=== PATIENT | female | born 1995 | race Caucasian/White ===

== ENCOUNTER 2019-10-24 15:53 | Emergency (ER) | payer BC ==
--- NOTE | 2019-10-24 16:28 | UC ---
Complaint Female HPI - HPI Summary HPI Summary: 24 yo female presents with pelvic pain. She tells me that she has always had abnormal menstrual cycles. Over the last few years she has been keeping a log and has noticed that she has a 5 day cycle about every 80-85 days that starts as a heavy bleeding and then will slow and stop. Throughout that time she will have significant b/l pelvic cramping and nausea. She tells me that she was practicing abstinence and just got in early september and started having unprotected intercourse with her around mid september. She had a few days of spotting around this time, but no pain. Today she tells me that over the last 2 days she has had brown vaginal discharge and RIGHT pelvic pain that is sharp. She is not due for her period. She took a test that was negative. She does not take any control. She denies abdominal pain, n/v/d/ c, dysuria, fever, or recent illness. - History Of Current Complaint Chief Complaint: UCAbdominalPain Stated Complaint: ABD PAIN, PERSONAL ISSUE Time Seen by Provider: 10/24/19 16:28 Hx Obtained From: Patient Hx Last Menstrual Period: early September Onset/Duration: Sudden Onset Timing: Constant Severity Initially: Moderate Severity Currently: Moderate Pain Intensity: 5 Pain Scale Used: 0-10 Numeric - Allergies/Home Medications Allergies/Adverse Reactions: Allergies Allergy/AdvReac Type Severity Reaction Status Date / Time No Known Allergies Allergy Verified 10/24/19 16:24 Home Medications: Home Medications NK [No Home Medications Reported] 10/24/19 [History Confirmed 10/24/19] PMH/Surg Hx/FS Hx/Imm Hx - Additional Past Medical History Additional PMH: None - Surgical History Surgical History: None - Family History Known Family History: Positive: None - Social History Occupation: Student Lives: With Family Alcohol Use: None Substance Use Type: None Smoking Status (MU): Never Smoked Tobacco Review of Systems All Other Systems Reviewed And Are Negative: No Constitutional: Positive: Negative Skin: Positive: Negative Respiratory: Positive: Negative Cardiovascular: Positive: Negative Gastrointestinal: Positive: Negative Genitourinary: Positive: Vaginal/Penile Discharge, Other - Right pelvic pain Neurovascular: Positive: Negative Neurological/Mental Status: Positive: Negative Psychological: Positive: Negative Physical Exam - Summary Physical Exam Summary: GENERAL: NAD. WDWN. No pain distress. SKIN: No rashes, sores, lesions, or open wounds. NECK: Supple. Nontender. No lymphadenopathy. CHEST: CTAB. No r/r/w. No accessory muscle use. Breathing comfortably and in no distress. CV: RRR. Pulses intact. Cap refill <2seconds ABDOMEN: Soft. Mild TTP about right pelvic region without point tenderness. No distention or guarding. No CVA tenderness. Bowel sounds present NEURO: Alert. PSYCH: Age appropriate behavior. Triage Information Reviewed: Yes Vital Signs: Initial Vital Signs Temp 99.1 F 10/24/19 16:18 Pulse 84 10/24/19 16:18 Resp 16 10/24/19 16:18 BP 128/82 10/24/19 16:18 Pulse Ox 99 10/24/19 16:18 Laboratory Tests 10/24/19 17:51 POC Urine Color Yellow POC Urine Clarity Clear POC Urine pH 6.5 POC Ur Specif Robson 1.020 POC Urine Protein Negative POC Ur Glucose (UA) Negative POC Urine Ketones Negative POC Urine Blood 1+ A POC Urine Nitrite Negative POC Urine Bilirubin Negative POC Urine Urobilinogen 0.2 POC U Leukocyte Esteras Negative Vital Signs Reviewed: Yes Pelvic Exam: Positive: External Exam Normal, No Cerv. Motion Tender, Active Bleeding, Other - Exam assisted by Melodie LAIRD. Negative: Discharge, Lesions, Mass, Tender w/ Cervical Motion, Ulcers Diagnostics - Radiology Transvaginal US Radiology Interpretation Completed By: Radiologist Summary of Radiographic Findings: FINDINGS: The uterus is normal in size, shape and echogenicity. The uterus measured 7.1 cm 3.1 cm 3.9 cm. The endometrial echo measured 0.9 cm in thickness. The right ovary measured 2.5 cm 4.2 cm 3.0 cm. The left ovary measured 1.9 cm 3.2 cm 2.7 cm. There is vascular flow within both ovaries. There are bilateral follicular cysts. There are 2 prominent right ovarian cysts measuring 2.3 x 1.9 x 2.1 and 3.1 x 2.5 x 2.8 cm. There is a trace amount of free intraperitoneal fluid in the cul-de-sac. IMPRESSION: 1. NO EVIDENCE FOR OVARIAN TORSION. 2. SLIGHTLY PROMINENT RIGHT OVARIAN CYSTS NOTED. Complaint Female Dx - Course Course Of Treatment: UA as above. Urine negative. US as above. Pelvic exam with moderate amount of active bleeding. No suspicious discharge, lesions, or pain. No CMT. Culture obtained for affirm, but low suspicion of BV/ yeast today. I suspect her pain is due to her menses and her right ovarian cysts - recommend f/u with OBGYN. May take tylenol/ibuprofen as directed for discomfort. - Differential Dx/Diagnosis Provider Diagnosis: Ovarian cyst, Pelvic pain Discharge ED - Sign-Out/Discharge Documenting (check all that apply): Patient Departure All imaging exams completed and their final reports reviewed: Yes - Discharge Plan Condition: Stable Disposition: HOME Patient Education Materials: Ovarian Cyst (ED) Referrals: No Primary Care Phys,NOPCP [Primary Care Provider] - Vinnie Ramos MD [Medical Doctor] - As Soon As Possible Additional Instructions: If you develop a fever, shortness of breath, chest pain, new or worsening symptoms - please call your PCP or go to the ED immediately. Your ultrasound revealed two ovarian cysts, which could be the cause of your pain. Given your abnormal menstrual cycle and pelvic pain - I recommend that you follow up with an OBGYN as soon as possible for further evaluation and treatment. - Billing Disposition and Condition Condition: STABLE Disposition: Home - Attestation Statements Provider Attestation: This patient was not seen by me. I was available for consult. Chart reviewed. MELY
[2019-10-24 18:40] VITALS: BP 124/68
--- NOTE | 2019-10-26 07:58 | UC ---
- Progress Note Progress Note: Reviewed Affirm results. Please advise that test is negative for yeast, Gardnerella and Trichomonas. She was advised to follow up with her rn medical surgical with regard to small right ovarian cysts and pelvic pain. Course/Dx - Diagnoses Provider Diagnoses: Ovarian cyst, Pelvic pain Discharge ED - Sign-Out/Discharge Documenting (check all that apply): Post-Discharge Follow Up All imaging exams completed and their final reports reviewed: Yes - Discharge Plan Condition: Stable Disposition: HOME Patient Education Materials: Ovarian Cyst (ED) Referrals: No Primary Care Phys,NOPCP [Primary Care Provider] - Vinnie Ramos MD [Medical Doctor] - As Soon As Possible Additional Instructions: If you develop a fever, shortness of breath, chest pain, new or worsening symptoms - please call your PCP or go to the ED immediately. Your ultrasound revealed two ovarian cysts, which could be the cause of your pain. Given your abnormal menstrual cycle and pelvic pain - I recommend that you follow up with an OBGYN as soon as possible for further evaluation and treatment. - Billing Disposition and Condition Condition: STABLE Disposition: Home
== END 2019-10-24 18:30 | disposition home or self-care (01) ==
LOC: UCEAST 15:53
DX: N83.201 Unspecified ovarian cyst, right side (principal); R10.2 Pelvic and perineal pain; N89.8 Other specified noninflammatory disorders of vagina
CPT/HCPCS: 76830; 81003; 84702; 87480; 87510; 87660; 99202; G0463